=== PATIENT | female | born 1965 | race Caucasian/White ===

== ENCOUNTER 2018-08-13 10:14 | Emergency (ER) | payer MEDICAID, SELFPAY ==
[2018-08-13 10:15] VITALS: BP 159/83; PULSE 88; RESP 18; TEMP 36.6; O2SAT 98; BMI 37.8
--- NOTE | 2018-08-13 10:43 | CT_ITS ---
STUDY: CT ABDOMEN AND PELVIS WITH CONTRAST REASON FOR EXAM: Female, 53 years old. Left-sided abdominal pain. RADIATION DOSAGE (If Supplied By Facility): CTDIvol = ( 13.39 ) mGy, DLP = ( 1004.62 ) mGycm TECHNIQUE: Transaxial images were obtained from the dome of the diaphragm to the symphysis pubis without oral contrast. 100 IV Isovue 300 was administered. Sagittal and coronal images were reconstructed. Individualized dose optimization techniques were used for this CT. COMPARISON: None. FINDINGS: Mild degree of the dependent bibasilar atelectasis. The visualized portions of the heart are within normal limits. There is decreased attenuation of the liver consistent with steatosis. Normal gallbladder and extrahepatic biliary system. Normal spleen. Normal pancreas. Normal bilateral adrenal glands. Normal right kidney. Normal left kidney. There is a small hiatal hernia. Normal small intestine. There is diverticulosis, with thickening of the colon wall, and pericolonic inflammation changes consistent with mild acute diverticulitis. The appendix is visualized and appears normal. There is scattered atherosclerotic calcification of the abdominal aorta, without a demonstrated aneurysm. Normal inferior vena cava. Normal retroperitoneum. Normal urinary bladder. There is absence of the uterus consistent with a prior hysterectomy. There is a left-sided inguinal hernia containing adipose tissue. There are mild degenerative changes of the visualized lumbar spine. CT/Abdomen/Pelvis W IV Cont ONLY IMPRESSION: Findings in keeping with a mild degree of sigmoid diverticulitis. Fatty infiltration of the liver. Electronically Signed: Get Herman, at 11:47 EDT , Service support ,
--- NOTE | 2018-08-13 10:45 | ED.DCSUM_ITS ---
- ER Visit Summary Date of Service: 08/13/18 Chief Complaint: Abdominal pain History of Present Illness: The patient is a 53 F who presents for 3 days of left lower quadrant abdominal pain. Pain is constant with waxing and waning in intensity. There are times it becomes very severe and sharp. Worse with movement and sometimes with eating. Patient has not eaten breakfast today. Pain is improved if she remains still or lays down. No associated nausea, vomiting, diarrhea, blood in stool or urinary symptoms. Patient denies fever. She had a colonoscopy 5 years ago that was unremarkable. History of hypertension. Not on any blood thinners. Physical Examination: Vital signs: afebrile, hemodynamically stable, no hypoxia on room air General: well nourished, well developed, in no distress Skin: warm, dry, no rash, no pallor HEENT: normocephalic and atraumatic; PERRL, EOMI, moist mucous membranes Cardiovascular: regular rate and rhythm without murmurs, no peripheral edema, 2+ pulses all distal extremities Respiratory: No increased work of breathing, lungs are clear to auscultation bilaterally, no rales, rhonchi or wheezing Abdominal: Abdomen is soft, tender in the left lower quadrant and mid left abdomen with normoactive bowel sounds, no guarding or rebound, no masses MSK: Moves all extremities, no deformities, normal strength Neuro: Awake and alert, oriented ?4. No facial droop, sensation and motor function intact and symmetric Test Results: Abnormal Lab Results 08/13/18 08/13/18 11:00 11:00 WBC 10.5 RBC 4.72 Hgb 14.7 Hct 43.2 MCV 91.5 MCH 31.1 MCHC 34.0 RDW 12.9 RDW Differential 43.4 Plt Count 285 MPV 9.6 Immature Gran % (Auto) 0.400 Neut % (Auto) 69.5 Lymph % (Auto) 23.3 Gila % (Auto) 5.4 Eos % (Auto) 0.9 Baso % (Auto) 0.5 Absolute Neuts (auto) 7.3 Absolute Lymphs (auto) 2.45 Total Counted Not Reportable Sodium 138 Potassium 3.8 Chloride 105 Carbon Dioxide 28.0 Anion Gap 5 BUN 16 Creatinine 0.72 Estim Creat Clear Calc 66.62 Est GFR (MDRD) Af Amer 108 Est GFR (MDRD) Non-Af 90 BUN/Creatinine Ratio 22.3 H Glucose 96 Calcium 9.0 Total Bilirubin 0.40 AST 17 ALT 35 Alkaline Phosphatase 98 Total Protein 7.8 Albumin 4.0 Globulin 3.8 Albumin/Globulin Ratio 1.1 Clinical Impression(s) from Imaging Studies Abdomen/Pelvis CT 08/13/18 10:43 IMPRESSION: Findings in keeping with a mild degree of sigmoid diverticulitis. Fatty infiltration of the liver. Electronically Signed: Get Herman, at 11:47 EDT , Service support , Medications Given Discontinued Medications Sodium Chloride () 1,000 mls @ 1,000 mls/hr IV .Q1H ONE Stop: 08/13/18 11:42 Last Admin: 08/13/18 11:00 Dose: 1,000 mls/hr Emergency Department Course and Treatment: Patient was offered and declined pain medication. Labs were performed that showed no significant derangements. Patient was given IV fluids and a CT abdomen and pelvis with IV contrast was performed. It was consistent with mild sigmoid diverticulitis without any complications. Patient was given a prescription for Augmentin. She was given a prescription for pain and nausea medicine as she is getting ready to travel out of [facility], and she will fill them if her symptoms worsen. Patient discharged home well-appearing and in no distress. Treatment Plan: [] Disposition: [] Impression: Acute uncomplicated sigmoid diverticulitis This note was generated with [employer] dictation software. It may contain incorrect words, spelling, and punctuation that were not noted in review of the chart prior to signing ED Disposition - Plan for ED Patient: Disposition: Home or Assisted Living Instructions: ED Diverticulitis Prescriptions: Hydrocodone Bitart/Apap 5-325 [[place] 5MG-325MG] 1 tab PO Q6H PRN PRN 3 Days #10 tab PRN Reason: Pain Ondansetron [Zofran Odt] 4 mg PO Q8H PRN PRN #10 tab PRN Reason: Nausea Amox/Clavulanate Tablet [Augmentin Tablet] 875 mg PO Q12H #20 tab Referrals: [facility],Out of [Primary Care Provider] - 3-5 Days if not improving Additional Instructions: Take the antibiotic as prescribed. You may use [id number] pain medication for mild to moderate pain. You have been prescribed medication for nausea and severe pain that you may fill if you have worsening of your symptoms. If you develop a high fever, worsening pain, uncontrolled nausea or vomiting, blood in your stool, or have any other concerning or worsening symptoms, return immediately to the emergency department for another evaluation.
[2018-08-13] MEDS: 0.9% Normal Saline 1,000 ML 1000 ML IV (11:00)
[2018-08-13 11:08] LABS: Absolute Lymphocyte Count 2.45 X10^3/ul (0.83-4.51); Absolute Neutrophil Count 7.3 X10^3/uL (2.0-7.7); Basophil# 0.05 X10^3/uL; Basophil% 0.5 % (0-1); Eosinophil# 0.09 X10^3/uL; Eosinophils% 0.9 % (0-5); Hematocrit 43.2 % (37-47); Hemoglobin 14.7 g/dl (12.0-15.0); Lymphocyte # 2.45 X10^3/ul (4.0); Lymphocyte % 23.3 % (19-41); Mean Corpuscular Hgb 31.1 pg (27.0-32.0); Mean Corpuscular Volume 91.5 fL (81-99); Mean Platelet Vol. 9.6 fl (6.2-12.0); Monocyte# 0.57 X10^3/uL; Monocyte% 5.4 % (0-10); Neutrophil # 7.31 X10^3/uL (2.7-7.7); Neutrophil % 69.5 % (47-70); Platelet Count 285 K/mm3 (150-450); RBC Distribution Width CV 12.9 % (11.6-14.6); RBC Distribution Width SD 43.4 fl (35.1-43.9); Red Blood Count 4.72 M/mm3 (4.2-5.4); White Blood Count 10.5 K/mm3 (4.4-11.0)
[2018-08-13 11:11] LABS: POSITIVE COUNT NO; POSITIVE DIFFERENTIAL NO; POSITIVE MORPHOLOGY NO
[2018-08-13 11:21] LABS: ALB/GLOB Ratio 1.1 RATIO (0.9-2.4); AST(SGOT) 17 U/L (15-37); Alanine Aminotransfer ALT/SGPT 35 U/L (13-56); Alkaline Phosphatase 98 U/L (45-117); Anion Gap 5 (5-15); BUN 16 mg/dL (7-18); BUN/Creat Ratio 22.3 RATIO (10-20); Chloride 105 mmol/L (98-107); Creatinine, Serum 0.72 mg/dL (0.55-1.02); EST Glomerular Filtration Rate 90 mL/min (>60); Est Glom Filt Rate - Afr Amer 108 mL/min (>60); Estimated Creatinine Clearance 66.62 ml/min; Globulin 3.8 g/dL (2.2-4.2); Glucose 96 mg/dL (74-106); Potassium 3.8 mmol/L (3.5-5.1); Protein, Total 7.8 g/dL (6.4-8.2); Sodium Level 138 mmol/L (136-145)
[2018-08-13 13:01] VITALS: RESP 18
== END 2018-08-13 13:02 | disposition home or self-care (01) ==
PROVIDERS: Emergency Provider Emergency Medicine
DX: K57.32 Diverticulitis of large intestine without perforation or abscess without bleeding (principal); K76.0 Fatty (change of) liver, not elsewhere classified; Z72.0 Tobacco use
CPT/HCPCS: 74177; 80053; 85025; 96360; 96361; 99283; J7030; Q9967; A4216